=== PATIENT | female | born 1975 | race Caucasian/White ===

== ENCOUNTER 2016-06-16 16:20 | Emergency (ER) | payer OTHER ==
--- NOTE | 2016-06-16 17:28 | DIAGNOSTIC IMAGING REPORT ---
PROCEDURE: CT HEAD WITHOUT CONTRAST INDICATION: HEADACHE TECHNIQUE: Axial CT images were acquired through the head. Coronal and sagittal reformations were created. COMPARISON: None. FINDINGS: No intracranial hemorrhage or extraaxial fluid collections. Ventricles are normal in size, shape and position. There is no mass, mass effect or midline shift. The zimmerman-white matter differentiation is normal. There is no edema. The calvarium is intact. The paranasal sinuses and mastoid air cells are normally aerated. The extracranial soft tissues and orbits are normal. IMPRESSION: 1. No CT evidence of acute intracranial process. 2. Findings discussed with COURTNEY Cobb covering for Nicole Randle at [address] scans at this facility use dose modulation, iterative reconstruction, and/or weight-based dosing when appropriate to reduce radiation dose to as low as reasonably achievable.
--- NOTE | 2016-06-16 18:41 | ED CLINICAL REPORT ---
Clinical Report - Physicians/Mid Levels [facility] [address] [place] [address] 06/16/2016 16:21 Patient: SHAYE PRITCHETT Time Seen: 16:43 Jun 16 2016. Arrived- By private vehicle. Historian- patient. HISTORY OF PRESENT ILLNESS Is still present. Chief Complaint: HEADACHE. This started today. Located in the frontal region and region of the left eye. No neck pain. The patient has had nausea and vomiting. (Dull constant headache on the front retro-orbital aspect of the her head since this morning, with associated nausea and vomiting, no abdominal pain. Patient reports history of allergic type of headaches that are different. Reports in the last few months and recently has been having throbbing similar headaches to today, however they only last a few seconds and self resolved. Patient was seen at the clinic and sent to the emergency department. Denies any recent illness, fevers. Reports chills. Reports an abnormal blood pressure on a measurement today, and the skin to the clinic. Denies any new medications. Denies any head trauma. Denies any foreign travel.). REVIEW OF SYSTEMS No fever, ear pain, chest pain, difficulty breathing or abdominal pain. No diarrhea or pain with urination. All systems otherwise negative, except as recorded above. SOCIAL HISTORY Smoker- current status unknown. No alcohol use. ADDITIONAL NOTES The nursing notes have been reviewed. PHYSICAL EXAM Vital Signs: 06/16/2016 17:09 BP: 139/88. HR: 65. RR: 18. O2 saturation: 95%. Temp: 98 F. Pain level now: 7/10. Appearance: Alert. Eyes: Pupils equal, round and reactive to light. ENT: Ears normal. Neck: Normal inspection. CVS: Normal heart rate and rhythm. Heart sounds normal. Back: Normal inspection. Neuro: Cranial nerves normal (as tested). No cerebellar findings. No motor deficit. No sensory deficit. LABS, X-RAYS, AND EKG CT Head: (IMPRESSION: 1. No CT evidence of acute intracranial process. 2. Findings discussed with COURTNEY Cobb covering for Nicole Randle at [address] scans at this facility use dose modulation, iterative reconstruction, and/or weight-based dosing when appropriate to reduce radiation dose to as low as reasonably achievable. Electronically Final signed by:Martine Quiñonez MD 06/16/2016 5:28:34 PM). Laboratory Tests: UA-Culture if indicated: (STACEY: 06/16/2016 16:35) ( [facility] [place] 06/16/2016 16:57) Final results Test Result Flag Units (Reference) URINE COLOR YELLOW URINE APPEARANCE CLEAR URINE GLUCOSE NEGATIVE (NEGATIVE) URINE BILIRUBIN NEGATIVE (NEGATIVE) URINE KETONE NEGATIVE (NEGATIVE) URINE SPECIFIC GRAVITY <= 1.005 L (1.010-1.030) URINE PH 7.0 (5.0-8.0) URINE PROTEIN NEGATIVE (NEGATIVE) URINE UROBILINOGEN 0.2 EU/dL (0.2-1.0) URINE NITRITE NEGATIVE (NEGATIVE) URINE BLOOD TRACE-INTACT (NEGATIVE) URINE LEUK ESTERASE TRACE (NEGATIVE) URINE RBC 0-1 rbc/hpf (0-1) URINE WBC 1-3 wbc/hpf (0-1) URINE EPITHELIAL CELLS 0-1 EPI/hpf (0-5) URINE BACTERIA TRACE (<1+) (NONE SEEN) 1+ MUCOUS URINE COMMENT CULTURE INDICATED URINE CULTURES ARE SET-UP BASED ON THE FOLLOWING CRITERIA:POSITIVE NITRITEPOSITIVE LEUKOCYTE ESTERASEGREATER THAN 10 WHITE BLOOD CELLSMODERATE (2+) OR GREATER BACTERIA CBC w Diff: (STACEY: 06/16/2016 17:30) ( [facility] 06/16/2016 17:37) Final results Test Result Flag Units (Reference) WHITE BLOOD COUNT 8.6 K/uL (4.5-11.5) RED BLOOD COUNT 4.34 M/uL (4.00-5.20) HEMOGLOBIN 13.0 gm/dL (12.0-16.0) HEMATOCRIT 37.8 % (36.0-46.0) MEAN CELL VOLUME 87 fL (80-100) MEAN CORPUSCULAR HGB 30 pg (26-34) MEAN CORPUSCULAR HGB CONC 34 g/dL (31-37) RED CELL DISTRIBUTION WIDTH 12.6 % (11.6-14.8) PLATELET COUNT 242 K/uL (150-400) NEUTROPHIL % 74.2 % (50-75) LYMPH % 20.1 L % (25-40) MONO % 4.9 % (3-14) EOSINOPHIL % 0.4 % (0-4) BASOPHIL % 0.4 % (0-2) PT with INR: (STACEY: 06/16/2016 17:10) ( [facility] 06/16/2016 18:28) Final results Test Result Flag Units (Reference) INR 0.9 (0.8-1.2) Low Intensity Therapy: INR 1.5-2.0 PT range 18.5-23.1Mod.Intensity Therapy: INR 2.0-3.0 PT range 23.1-31.5High Intensity Therapy: INR 2.5-3.5 PT range 27.4-35.5High Intensity Therapy 2: INR 3.0-4.0 PT range 31.5-39.3 APTT 31 SECONDS (24-34) CMP: (STACEY: 06/16/2016 17:30) ( [facility] 06/16/2016 17:57) Final results Test Result Flag Units (Reference) GLUCOSE 124 H mg/dL (70-110) BUN 9 mg/dL (7-18) CREATININE 0.7 mg/dL (0.6-1.3) Estimated GFR >60 mL/min Estimated GFR- >60 mL/min Note: Persistent reduction over 3 months in eGFR<60 mL/min/1.73 m2 defines CKD. Patients with eGFR values>=60 mL/min/1.73 m2 may also have CKD if evidence ofpersistent proteinuria. Additional information may be foundat www.kidney.org. SODIUM 137 mmol/L (136-145) POTASSIUM 3.5 mmol/L (3.5-5.1) CHLORIDE 100 mmol/L (98-107) CARBON DIOXIDE 25 mmol/L (21-32) CALCIUM 9.1 mg/dL (8.5-10.1) TOTAL PROTEIN 8.2 g/dL (6.4-8.2) ALBUMIN 4.1 g/dL (3.3-5.0) BILIRUBIN, TOTAL 0.5 mg/dL (0.0-1.0) ALKALINE PHOSPHATASE 101 U/L (46-116) AST (SGOT) 30 U/L (15-37) ALT (SGPT) 53 U/L (12-78) . PROGRESS AND PROCEDURES Course of Care: here in the ER patient received IV hydration, IV Toradol, Zofran and Reglan. CT of the head is unremarkable. Her lab workup is unremarkable. Given her worsening headache that started this morning and peaked around 1 or 2 PM discussion was made in regard to a lumbar puncture. Discussed at length with patient in regard to risk and benefits of lumbar puncture, and although a small suspicion for John an hemorrhage, cannot completely rule search out. In addition Dr. Santacruz was in the room discussing the same with the patient. Ultimately she opted to not have the procedure completed due to the potential risk factors Found this to be appropriate, as potential for SAH, given her symptoms have been ongoing for about almost 10 hours, peak greater than 1 hour with an onset, history of somewhat similar symptoms in the past off and on, however the symptoms lasted for longer duration and hours today. No otherwise injury. Patient does not have any meningeal signs, thus this is not suspected. 06/16/2016 18:52 BP: 100/67. HR: 70. RR: 16. O2 saturation: 98%. Temp: 97.7 F. Pain level now: 4/10. Patient is stable. Physical exam findings are improved. Symptoms better. Patient/family counseled. Disposition: Discharged. CLINICAL IMPRESSION Acute headache. INSTRUCTIONS (Please return if your symptoms suddenly worse or change). Warnings: Further evaluation is necessary. Prescription Medications: Zofran (orally disintegrating tablets) 4 mg: take 1 orally every 6 hours for 3 days as needed for nausea. Dispense ten (10). No refill. OTC Medications: Take OTC medications according to label instructions. Available over the counter. Acetaminophen (available over the counter): take according to label instructions. Motrin (available over the counter): take according to label instructions. Understanding of the discharge instructions verbalized by patient and family. (Electronically signed by Zofia Randle P.A.-C 06/16/2016 20:28)
--- NOTE | 2016-06-16 18:41 | ED ORDER SUMMARY ---
..... Patient: SHAYE PRITCHETT OrderSheet [facility] VisitID: [id number] [place] [address] 40y, F Registration Date/Time: 06/16/2016 ORDER SHEET Weight: 68.0 kg (stated) Allergies: Vicodin, Tramadol, morphine, GENERAL ORDERS: CT Head wo Cont Urgent (16:39 06/16/2016 EKoroleva P.A.-C) (Ack 16:41 IJurca ER Tech1) (17:17 MCampbell) CBC w Diff Urgent (16:40 06/16/2016 EKoroleva P.A.-C) (Ack 16:41 IJurca ER Tech1) (17:49 MCook R.N.) CMP Urgent (16:40 06/16/2016 EKoroleva P.A.-C) (Ack 16:41 IJurca ER Tech1) (17:49 MCook R.N.) UA-Culture if indicated Urgent (16:40 06/16/2016 EKoroleva P.A.-C) (Ack 16:41 IJurca ER Tech1) (16:59 MCook R.N.) CSF, Cell Count Urgent (17:50 06/16/2016 EKoroleva P.A.-C) (Ack 17:51 IJurca ER Tech1) (19:11 MCook R.N.) (Cancelled: Pt refused tzwczerob11:12 MCook R.N.) CSF, Culture Urgent (17:50 06/16/2016 EKoroleva P.A.-C) (Ack 17:51 IJurca ER Tech1) (19:11 MCook R.N.) (Cancelled: Pt refused pgmajsrnp56:12 MCook R.N.) CSF, Glucose Urgent (17:50 06/16/2016 EKoroleva P.A.-C) (Ack 17:51 IJurca ER Tech1) (19:11 MCook R.N.) (Cancelled: Pt refused opxvaxkvw75:12 MCook R.N.) CSF, Protein Urgent (17:50 06/16/2016 EKoroleva P.A.-C) (Ack 17:51 IJurca ER Tech1) (19:11 MCook R.N.) (Cancelled: Pt refused [id number] MCook R.N.) LP Tray (17:50 06/16/2016 EKoroleva P.A.-C) (Ack 17:51 IJurca ER Tech1) (18:10 MCook R.N.) PT with INR Urgent (18:06 06/16/2016 Kwame Freitas) (Ack 18:08 IJurca ER Tech1) (18:31 MCook R.N.) PTT Urgent (18:06 06/16/2016 Kwame Freitas) (Ack 18:08 IJurca ER Tech1) (18:31 MCook R.N.) MEDICATION ORDERS: IV FLUIDS: IV NS : initial bolus 1000 mL (1000 mL/hr), then 1000 mL/hr for X1 (NOW); Marlo (16:39 06/16/2016 EKoroleva P.A.-C) (17:00 MCook R.N.) Reglan IV 10 mg (NOW) (16:40 06/16/2016 EKoroleva P.A.-C) (17:02 MCook R.N.) Zofran IV 4 mg (NOW) (16:40 06/16/2016 EKoroleva P.A.-C) (17:05 MCook R.N.) Toradol IV 30 mg (NOW) (16:40 06/16/2016 EKoroleva P.A.-C) (17:07 MCook R.N.) Ativan IV 1 mg (HIGH ALERT MEDICATION, NOW) (17:50 06/16/2016 EKoroleva P.A.-C) (18:31 MCook R.N.) ORDER SHEET NOTES: [Electronically signed by Juarez Negrete R.N. (19:12 06/16/2016)] [Electronically signed by Zofia Randle P.A.-C (20:28 06/16/2016)] [Electronically locked/signed by Juarez Negrete R.N. (19:12 06/16/2016)]
--- NOTE | 2016-06-16 18:41 | ED NURSING NOTES ---
Clinical Report - Nurses [facility] [address] [place] [address] 06/16/2016 16:21 Patient: SHAYE PRITCHETT TRIAGE Triage time 1700. Acuity: LEVEL 3. Chief Complaint: NAUSEA and VOMITING and (BANG). Alert. No acute distress. SEPSIS SCREEN: Sepsis Screen. Negative (no infection suspected/documented). --17:14 Juarez Negrete R.N. 17:09 06/16/16. BP: 139/88. HR: 65. RR: 18. O2 saturation: 95% on room air. Temp: 98 F. Pain level now: 08/22. --17:14 Juarez Negrete R.N. Weight: 68 kg stated. Height/Length: 62 inches Per Patient. BMI: 27.4. --17:08 Juarez Negrete R.N. Medications Baby ASA. --17:10 Juarez Negrete R.N. Multivit. --17:10 Juarez Negrete R.N. Green tea capsule. --17:11 Juarez Negrete R.N. The following entry was struck by Juarez Negrete R.N., 17:45 (06/16/16) Reason - other. <<STRICKEN ENTRY-- Multivita. --17:11 Juarez Negrete R.N. --END STRIKE>>. Allergies Vicodin. --17:10 Juarez Negrete R.N. Tramadol. --17:10 Juarez Negrete R.N. morphine. --17:10 Juarez Negrete R.N. The following entry was struck by Juarez Negrete R.N., 17:45 (06/16/16) Reason - other. <<STRICKEN ENTRY-- Tramadol. --17:10 Juarez Negrete R.N. --END STRIKE>>. History Arrived by private vehicle. Historian: patient and family. Accompanied by family. This started today. She has had nausea and vomiting. No diarrhea, constipation, abdominal pain or fever. Treatment CLINICAL FACULTY: None. PAST MEDICAL HX: Immunizations: up-to-date. Denies current . SOCIAL HX: Current every day smoker. No alcohol use or drug use. No recent travel. No infectious disease exposure. No known contact with a sick individual. ABUSE ASSESSMENT: No report of abuse. FALL RISK ASSESSMENT: Fall risk assessment completed. No fall risk identified. NUTRITIONAL RISK ASSESSMENT: The nutritional risk assessment revealed no deficiencies. FUNCTIONAL ASSESSMENT: Functional assessment: no impairments noted. LEARNING NEEDS ASSESSMENT: The learning needs assessment revealed no barriers. SKIN INTEGRITY ASSESSMENT: Skin integrity risk assessment completed. No skin integrity risk identified. --17:14 Juarez Negrete R.N. PROBLEMS: Headache. Endometriosis. --17:12 Juarez Negrete R.N. ADDITIONAL SURGERIES: Total hysterectomy with removal of both tubes and ovaries. --17:12 Juarez Negrete R.N. Assessment The patient states feels the same. --17:14 Juarez Negrete R.N. Interventions ID band on patient. --17:14 Juarez Negrete R.N. PHYSICAL ASSESSMENT To room via wheelchair. GENERAL / NEURO / PSYCH: Alert. Oriented X 4. Appears in distress. HEENT: Mucous membranes are pink. RESPIRATORY: Respirations not labored. CVS: Capillary refill less than 2 seconds. SKIN: Skin is warm and dry. --17:14 Juarez Negrete R.N. NURSING PROGRESS NOTES 17:00 06/16/2016 Site #1 started via IV in the right wrist with an 22g angiocath, with aseptic technique; two attempts. Saline lock flushed with saline. --17:00 Juarez Negrete R.N. 17:00 06/16/2016 Started bag #1 1000 mL IV Fluids IV NS (Saline); bolus of 1000 mL wide open via site #1. Allergies verified and confirmed 5 rights. IV patency established. IV site checked: no pain, redness, or swelling. IV flushed thoroughly pre- and post-medication administration. Completed per protocol. --17:00 Juarez Negrete R.N. 17:02 06/16/2016 Reglan (Metoclopramide HCl) IVP 10 mg given. via site #1. Allergies verified and confirmed 5 rights. IV patency established. IV site checked: no pain, redness, or swelling. IV flushed thoroughly pre- and post-medication administration. IVP given by RN. --17:02 Juarez Negrete R.N. 17:05 06/16/2016 Zofran (Ondansetron HCl) IVP 4 mg given. via site #1. Allergies verified and confirmed 5 rights. IV patency established. IV site checked: no pain, redness, or swelling. IV flushed thoroughly pre- and post-medication administration. IVP given by RN. --17:05 Juarez Negrete R.N. 17:07 06/16/2016 Toradol IVP 30 mg given. via site #1. Allergies verified and confirmed 5 rights. IV patency established. IV site checked: no pain, redness, or swelling. IV flushed thoroughly pre- and post-medication administration. IVP given by RN. --17:07 Juarez Negrete R.N. The plan of care for this patient has been created. Monitoring of patient in place. Reassurance given. Patient transported to CT by stretcher with [employer]. Two patient identifiers checked. Call light placed in reach. Bed placed in lowest position. Patient ready for evaluation- PA notified. ( Pt stable, scheduled medications given, VSS, lab here to collect blood.). --17:15 Juarez Negrete R.N. Patient returned from CT by stretcher with [employer]. (17:28 Jun 16 2016). --17:28 Juarez Negrete R.N. ( Dr. Quiñonez called, reported a negative head CT.). --17:38 Juarez Negrete R.N. 18:31 06/16/2016 Ativan IV 1 mg (HIGH ALERT MEDICATION, NOW) was refused by patient because of Pt refused LP and therefore refuses medication. Juarez Negrete --18:31 Juarez Negrete R.N. ( PA in to discuss recommendation for LP. Reviewed risks and benefits of procedure. MD then in to further discuss procedure. Pt then refused procedure after talking with MD, states she would prefer to "just wait" to see if her BANG improves. Spouse at bedside. VSS.). --18:39 Juarez Negrete R.N. 18:39 06/16/16. BP: 106/68. HR: 73. RR: 16. O2 saturation: 100% on room air. Pain level now: 05/23. --18:39 Juarez Negrete R.N. 18:54 06/16/2016 Site #1 removed upon discharge. Bandage applied. --18:54 Juarez Negrete R.N. 18:54 06/16/2016 IV Fluids IV NS Discontinued: bag #1 discontinued upon arrival. Total amount infused: 500 mL. IV patency established. IV site checked: no pain, redness, or swelling. IV flushed thoroughly. --18:54 Juarez Negrete R.N. 18:54 06/16/2016 Reglan IVP Response: no adverse reaction. --18:54 Juarez Negrete R.N. 18:54 06/16/2016 Zofran IVP Response: no adverse reaction. --18:54 Juarez Negrete R.N. 18:54 06/16/2016 Toradol IVP Response: no adverse reaction. --18:54 Juarez Negrete R.N. DISPOSITION / DISCHARGE 18:52 06/16/16. BP: 100/67. HR: 70. RR: 16. O2 saturation: 98% on room air. Temp: 97.7 F. Pain level now: 05/23. --18:53 Juarez Negrete R.N. Condition at departure: improved and stable. No learning barriers present. Discharge instructions provided and reviewed with the patient and spouse. Reviewed medication(s) side effects, precautions, dosing and course information. Prescription(s) given to the patient. Reviewed referral to a primary care physician for followup. Patient and spouse verbalized understanding. Written instructions provided in Argentine. The patient was discharged by the physician telecom assistant. She was discharged home and accompanied by spouse. She left the Emergency Department ambulatory and via private vehicle. Spouse driving. ( Pt dc'd in stable condition, ambulatory, VSS, BANG improved.). --18:53 Juarez Negrete R.N. Departure time: 18:53 Jun 16 2016. --18:53 Juarez Negrete R.N. Locked/Released at 06/16/2016 19:12 by Juarez Negrete R.N.
--- NOTE | 2016-06-16 18:41 | ED NURSING NOTES ---
Clinical Report - Nurses [facility] [address] [place] [address] 06/16/2016 16:21 Patient: SHAYE PRITCHETT TRIAGE Triage time 1700. Acuity: LEVEL 3. Chief Complaint: NAUSEA and VOMITING and (BANG). Alert. No acute distress. SEPSIS SCREEN: Sepsis Screen. Negative (no infection suspected/documented). --17:14 Juarez Nergete R.N. 17:09 06/16/16. BP: 139/88. HR: 65. RR: 18. O2 saturation: 95% on room air. Temp: 98 F. Pain level now: 08/22. --17:14 Juarez Negrete R.N. Weight: 68 kg stated. Height/Length: 62 inches Per Patient. BMI: 27.4. --17:08 Juarez Negrete R.N. Medications Baby ASA. --17:10 Juarez Negrete R.N. Multivit. --17:10 Juarez Negrete R.N. Green tea capsule. --17:11 Juarez Negrete R.N. The following entry was struck by Juarez Negrete R.N., 17:45 (06/16/16) Reason - other. <<STRICKEN ENTRY-- Multivita. --17:11 Juarez Negrete R.N. --END STRIKE>>. Allergies Vicodin. --17:10 Juarez Negrete R.N. Tramadol. --17:10 Juarez Negrete R.N. morphine. --17:10 Juarez Negrete R.N. The following entry was struck by Juarez Negrete R.N., 17:45 (06/16/16) Reason - other. <<STRICKEN ENTRY-- Tramadol. --17:10 Juarez Negrete R.N. --END STRIKE>>. History Arrived by private vehicle. Historian: patient and family. Accompanied by family. This started today. She has had nausea and vomiting. No diarrhea, constipation, abdominal pain or fever. Treatment COMPUTER GAME TESTER: None. PAST MEDICAL HX: Immunizations: up-to-date. Denies current . SOCIAL HX: Current every day smoker. No alcohol use or drug use. No recent travel. No infectious disease exposure. No known contact with a sick individual. ABUSE ASSESSMENT: No report of abuse. FALL RISK ASSESSMENT: Fall risk assessment completed. No fall risk identified. NUTRITIONAL RISK ASSESSMENT: The nutritional risk assessment revealed no deficiencies. FUNCTIONAL ASSESSMENT: Functional assessment: no impairments noted. LEARNING NEEDS ASSESSMENT: The learning needs assessment revealed no barriers. SKIN INTEGRITY ASSESSMENT: Skin integrity risk assessment completed. No skin integrity risk identified. --17:14 Juarez Negrete R.N. PROBLEMS: Headache. Endometriosis. --17:12 Juarez Negrete R.N. ADDITIONAL SURGERIES: Total hysterectomy with removal of both tubes and ovaries. --17:12 Juarez Negrete R.N. Assessment The patient states feels the same. --17:14 Juarez Negrete R.N. Interventions ID band on patient. --17:14 Juarez Negrete R.N. PHYSICAL ASSESSMENT To room via wheelchair. GENERAL / NEURO / PSYCH: Alert. Oriented X 4. Appears in distress. HEENT: Mucous membranes are pink. RESPIRATORY: Respirations not labored. CVS: Capillary refill less than 2 seconds. SKIN: Skin is warm and dry. --17:14 Juarez Negrete R.N. NURSING PROGRESS NOTES 17:00 06/16/2016 Site #1 started via IV in the right wrist with an 22g angiocath, with aseptic technique; two attempts. Saline lock flushed with saline. --17:00 Juarez Negrete R.N. 17:00 06/16/2016 Started bag #1 1000 mL IV Fluids IV NS (Saline); bolus of 1000 mL wide open via site #1. Allergies verified and confirmed 5 rights. IV patency established. IV site checked: no pain, redness, or swelling. IV flushed thoroughly pre- and post-medication administration. Completed per protocol. --17:00 Juarez Negrete R.N. 17:02 06/16/2016 Reglan (Metoclopramide HCl) IVP 10 mg given. via site #1. Allergies verified and confirmed 5 rights. IV patency established. IV site checked: no pain, redness, or swelling. IV flushed thoroughly pre- and post-medication administration. IVP given by RN. --17:02 Juarez Negrete R.N. 17:05 06/16/2016 Zofran (Ondansetron HCl) IVP 4 mg given. via site #1. Allergies verified and confirmed 5 rights. IV patency established. IV site checked: no pain, redness, or swelling. IV flushed thoroughly pre- and post-medication administration. IVP given by RN. --17:05 Juarez Negrete R.N. 17:07 06/16/2016 Toradol IVP 30 mg given. via site #1. Allergies verified and confirmed 5 rights. IV patency established. IV site checked: no pain, redness, or swelling. IV flushed thoroughly pre- and post-medication administration. IVP given by RN. --17:07 Juarez Negrete R.N. The plan of care for this patient has been created. Monitoring of patient in place. Reassurance given. Patient transported to CT by stretcher with Mark media. Two patient identifiers checked. Call light placed in reach. Bed placed in lowest position. Patient ready for evaluation- PA notified. ( Pt stable, scheduled medications given, VSS, lab here to collect blood.). --17:15 Juarez Negrete R.N. Patient returned from CT by stretcher with Mark media. (17:28 Jun 16 2016). --17:28 Juarez Negrete R.N. ( Dr. Quiñonez called, reported a negative head CT.). --17:38 Juarez Negrete R.N. 18:31 06/16/2016 Ativan IV 1 mg (HIGH ALERT MEDICATION, NOW) was refused by patient because of Pt refused LP and therefore refuses medication. Juarez Negrete --18:31 Juarez Negrete R.N. ( PA in to discuss recommendation for LP. Reviewed risks and benefits of procedure. MD then in to further discuss procedure. Pt then refused procedure after talking with MD, states she would prefer to "just wait" to see if her BANG improves. Spouse at bedside. VSS.). --18:39 Juarez Negrete R.N. 18:39 06/16/16. BP: 106/68. HR: 73. RR: 16. O2 saturation: 100% on room air. Pain level now: 05/23. --18:39 Juarez Negrete R.N. 18:54 06/16/2016 Site #1 removed upon discharge. Bandage applied. --18:54 Juarez Negrete R.N. 18:54 06/16/2016 IV Fluids IV NS Discontinued: bag #1 discontinued upon arrival. Total amount infused: 500 mL. IV patency established. IV site checked: no pain, redness, or swelling. IV flushed thoroughly. --18:54 Juarez Negrete R.N. 18:54 06/16/2016 Reglan IVP Response: no adverse reaction. --18:54 Juarez Negrete R.N. 18:54 06/16/2016 Zofran IVP Response: no adverse reaction. --18:54 Juarez Negrete R.N. 18:54 06/16/2016 Toradol IVP Response: no adverse reaction. --18:54 Juarez Negrete R.N. DISPOSITION / DISCHARGE 18:52 06/16/16. BP: 100/67. HR: 70. RR: 16. O2 saturation: 98% on room air. Temp: 97.7 F. Pain level now: 05/23. --18:53 Juarez Negrete R.N. Condition at departure: improved and stable. No learning barriers present. Discharge instructions provided and reviewed with the patient and spouse. Reviewed medication(s) side effects, precautions, dosing and course information. Prescription(s) given to the patient. Reviewed referral to a primary care physician for followup. Patient and spouse verbalized understanding. Written instructions provided in Qatari. The patient was discharged by the physician broker assistant. She was discharged home and accompanied by spouse. She left the Emergency Department ambulatory and via private vehicle. Spouse driving. ( Pt dc'd in stable condition, ambulatory, VSS, BANG improved.). --18:53 Juarez Negrete R.N. Departure time: 18:53 Jun 16 2016. --18:53 Juarez Negrete R.N. Locked/Released at 06/16/2016 19:12 by Juarez Negrete R.N.
--- NOTE | 2016-06-16 18:41 | ED ORDER SUMMARY ---
..... Patient: SHAYE PRITCHETT OrderSheet [facility] VisitID: [id number] [place] [address] 40y, F Registration Date/Time: 06/16/2016 ORDER SHEET Weight: 68.0 kg (stated) Allergies: Vicodin, Tramadol, morphine, GENERAL ORDERS: CT Head wo Cont Urgent (16:39 06/16/2016 EKoroleva P.A.-C) (Ack 16:41 IJurca ER Tech1) (17:17 MCampbell) CBC w Diff Urgent (16:40 06/16/2016 EKoroleva P.A.-C) (Ack 16:41 IJurca ER Tech1) (17:49 MCook R.N.) CMP Urgent (16:40 06/16/2016 EKoroleva P.A.-C) (Ack 16:41 IJurca ER Tech1) (17:49 MCook R.N.) UA-Culture if indicated Urgent (16:40 06/16/2016 EKoroleva P.A.-C) (Ack 16:41 IJurca ER Tech1) (16:59 MCook R.N.) CSF, Cell Count Urgent (17:50 06/16/2016 EKoroleva P.A.-C) (Ack 17:51 IJurca ER Tech1) (19:11 MCook R.N.) (Cancelled: Pt refused [id number] MCook R.N.) CSF, Culture Urgent (17:50 06/16/2016 EKoroleva P.A.-C) (Ack 17:51 IJurca ER Tech1) (19:11 MCook R.N.) (Cancelled: Pt refused [id number] MCook R.N.) CSF, Glucose Urgent (17:50 06/16/2016 EKoroleva P.A.-C) (Ack 17:51 IJurca ER Tech1) (19:11 MCook R.N.) (Cancelled: Pt refused [id number] MCook R.N.) CSF, Protein Urgent (17:50 06/16/2016 EKoroleva P.A.-C) (Ack 17:51 IJurca ER Tech1) (19:11 MCook R.N.) (Cancelled: Pt refused tlqnbiwdv12:12 MCook R.N.) LP Tray (17:50 06/16/2016 EKoroleva P.A.-C) (Ack 17:51 IJurca ER Tech1) (18:10 MCook R.N.) PT with INR Urgent (18:06 06/16/2016 Kwame Freitas) (Ack 18:08 IJurca ER Tech1) (18:31 MCook R.N.) PTT Urgent (18:06 06/16/2016 Kwame Freitas) (Ack 18:08 IJurca ER Tech1) (18:31 MCook R.N.) MEDICATION ORDERS: IV FLUIDS: IV NS : initial bolus 1000 mL (1000 mL/hr), then 1000 mL/hr for X1 (NOW); Marlo (16:39 06/16/2016 EKoroleva P.A.-C) (17:00 MCook R.N.) Reglan IV 10 mg (NOW) (16:40 06/16/2016 EKoroleva P.A.-C) (17:02 MCook R.N.) Zofran IV 4 mg (NOW) (16:40 06/16/2016 EKoroleva P.A.-C) (17:05 MCook R.N.) Toradol IV 30 mg (NOW) (16:40 06/16/2016 EKoroleva P.A.-C) (17:07 MCook R.N.) Ativan IV 1 mg (HIGH ALERT MEDICATION, NOW) (17:50 06/16/2016 EKoroleva P.A.-C) (18:31 MCook R.N.) ORDER SHEET NOTES: [Electronically signed by Juarez Negrete R.N. (19:12 06/16/2016)] [Electronically signed by Zofia Randle P.A.-C (20:28 06/16/2016)] [Electronically locked/signed by Juarez Negrete R.N. (19:12 06/16/2016)]
--- NOTE | 2016-06-16 20:28 | ED MAR SUMMARY ---
..... Medication Administration Record [facility] [address] [place] [address] Patient: SHAYE PRITCHETT Visit ID: [id number] 40y, F Weight: 68.0 kg Height/Length: 62 in BMI: 27.4 ALLERGIES: morphine, Tramadol, Vicodin Start 17:00 06/16/2016 Juarez Negrete R.N., Stop 18:54 06/16/2016 Juarez Negrete R.N. Medication Administered: IV NS (SALINE), Dose: IV Fluids, Bolus: 1000 mL wide open, Dispensed: 1000 mL bag, Site: #1 right wrist. Medication Ordered: IV NS : initial bolus 1000 mL (1000 mL/hr), then 1000 mL/hr for X1 (NOW); Marlo. Given 17:02 06/16/2016 Juarez Negrete R.N. Medication Administered: REGLAN [IVP] (METOCLOPRAMIDE HCL), Dose: 10 mg IVP, Site: #1 right wrist. Medication Ordered: Reglan IV 10 mg (NOW). Given 17:05 06/16/2016 Juarez Negrete R.N. Medication Administered: ZOFRAN [IVP] (ONDANSETRON HCL), Dose: 4 mg IVP, Site: #1 right wrist. Medication Ordered: Zofran IV 4 mg (NOW). Given 17:07 06/16/2016 Juarez Negrete R.N. Medication Administered: TORADOL [IVP], Dose: 30 mg IVP, Site: #1 right wrist. Medication Ordered: Toradol IV 30 mg (NOW).
--- NOTE | 2016-06-16 20:28 | ED DISCHARGE INSTRUCTIONS ---
Patient: SHAYE PRITCHETT General Instructions [facility] VisitID: [id number] [place] [address] 40y, F Registration Date/Time: 06/16/2016 Acute headache. INSTRUCTIONS (Please return if your symptoms suddenly worse or change). Warnings: Further evaluation is necessary. Prescription Medications: Zofran (orally disintegrating tablets) 4 mg: take 1 orally every 6 hours for 3 days as needed for nausea. Dispense ten (10). No refill. OTC Medications: Take OTC medications according to label instructions. Available over the counter. Acetaminophen (available over the counter): take according to label instructions. Motrin (available over the counter): take according to label instructions. Understanding of the discharge instructions verbalized by patient and family. ADDITIONAL INFORMATION Headache [Unspecified] The cause of your headache today is not clear, but it does not appear to be the sign of any serious illness. Under stress, some people tense the muscles of their shoulder, neck and scalp without knowing it. If this condition lasts long enough, a TENSION HEADACHE can occur. A MIGRAINE HEADACHE is caused by changes in blood flow to the brain. A migraine attack may be triggered by emotional stress, hormone changes during the menstrual cycle, oral contraceptives, alcohol use, certain foods containing tyramine, eye strain, weather changes, missing meals, lack of sleep or oversleeping. Other causes of headache include a viral illness with high fever, head injury with concussion, sinus, ear or throat infection, dental pain and TMJ (jaw joint) pain. More serious but less common causes of headache include stroke, brain hemorrhage, brain tumor, meningitis and encephalitis. Home Care: If you were given pain medicine for this headache, do not drive yourself home. Arrange for a ride, instead. When you get home, try to sleep. You should feel much better when you wake up. Apply heat to the back of your neck to relieve neck muscle spasm. Migraine headaches may respond best to an ice pack on the forehead or at the base of the skull. If you are having nausea or vomiting, follow a light diet until your headache is relieved. If you have a migraine type headache, use sunglasses when in the daylight or around bright indoor lighting until symptoms improve. Bright glaring light can worsen this kind of headache. Follow Up with your doctor if the headache is not better within the next 24 hours. If you have frequent headaches you should discuss a treatment plan with your primary care doctor. By being aware of the earliest signs of headache, and starting treatment right away, you may be able to stop the pain yourself. Get Prompt Medical Attention if any of the following occur: Worsening of your head pain or no improvement within 24 hours Repeated vomiting (unable to keep liquids down) Fever of 100.4F (38C) or higher, or as directed by your healthcare provider Stiff neck Extreme drowsiness, confusion or fainting Dizziness, vertigo (dizziness with spinning sensation) Weakness of an arm or leg or one side of the face Difficulty with speech or vision Ondansetron Hydrochloride Oral tablet What is this medicine? ONDANSETRON (on ROSIE se princess) is used to treat nausea and vomiting caused by chemotherapy. It is also used to prevent or treat nausea and vomiting after surgery. How should I use this medicine? Take this medicine by mouth with a glass of water. Follow the directions on your prescription label. Take your doses at regular intervals. Do not take your medicine more often than directed. Talk to your senior hr business partner regarding the use of this medicine in children. Special care may be needed. What side effects may I notice from receiving this medicine? Side effects that you should report to your doctor or health childcare center administrator as soon as possible: allergic reactions like skin rash, itching or hives, swelling of the face, lips or tongue breathing problems dizziness fast or irregular heartbeat feeling faint or lightheaded, falls fever and chills swelling of the hands or feet tightness in the chest Side effects that usually do not require medical attention (report to your doctor or health childcare center administrator if they continue or are bothersome): constipation or diarrhea headache What may interact with this medicine? Do not take this medicine with any of the following medications: -apomorphine -cisapride -dofetilide -dronedarone -pimozide -thioridazine -ziprasidone This medicine may also interact with the following medications: -carbamazepine -phenytoin -rifampicin -tramadol -other medicines that prolong the QT interval (cause an abnormal heart rhythm) What if I miss a dose? If you miss a dose, take it as soon as you can. If it is almost time for your next dose, take only that dose. Do not take double or extra doses. Where should I keep my medicine? Keep out of the reach of children. Store between 2 and 30 degrees C (36 and 86 degrees F). Throw away any unused medicine after the expiration date. What should I tell my health care provider before I take this medicine? They need to know if you have any of these conditions: heart disease history of irregular heartbeat liver disease low levels of magnesium or potassium in the blood an unusual or allergic reaction to ondansetron, granisetron, other medicines, foods, dyes, or preservatives or trying to get breast-feeding What should I watch for while using this medicine? Check with your doctor or health childcare center administrator right away if you have any sign of an allergic reaction. You have been given the following additional information: Headache, Unspecified Ondansetron Hydrochloride Oral tablet (Electronically signed by Zofia Randle P.A.-C 06/16/2016 20:28)
--- NOTE | 2016-06-16 20:28 | ED DISCHARGE INSTRUCTIONS ---
Patient: SHAYE PRITCHETT General Instructions [facility] VisitID: [id number] [place] [address] 40y, F Registration Date/Time: 06/16/2016 Acute headache. INSTRUCTIONS (Please return if your symptoms suddenly worse or change). Warnings: Further evaluation is necessary. Prescription Medications: Zofran (orally disintegrating tablets) 4 mg: take 1 orally every 6 hours for 3 days as needed for nausea. Dispense ten (10). No refill. OTC Medications: Take OTC medications according to label instructions. Available over the counter. Acetaminophen (available over the counter): take according to label instructions. Motrin (available over the counter): take according to label instructions. Understanding of the discharge instructions verbalized by patient and family. ADDITIONAL INFORMATION Headache [Unspecified] The cause of your headache today is not clear, but it does not appear to be the sign of any serious illness. Under stress, some people tense the muscles of their shoulder, neck and scalp without knowing it. If this condition lasts long enough, a TENSION HEADACHE can occur. A MIGRAINE HEADACHE is caused by changes in blood flow to the brain. A migraine attack may be triggered by emotional stress, hormone changes during the menstrual cycle, oral contraceptives, alcohol use, certain foods containing tyramine, eye strain, weather changes, missing meals, lack of sleep or oversleeping. Other causes of headache include a viral illness with high fever, head injury with concussion, sinus, ear or throat infection, dental pain and TMJ (jaw joint) pain. More serious but less common causes of headache include stroke, brain hemorrhage, brain tumor, meningitis and encephalitis. Home Care: If you were given pain medicine for this headache, do not drive yourself home. Arrange for a ride, instead. When you get home, try to sleep. You should feel much better when you wake up. Apply heat to the back of your neck to relieve neck muscle spasm. Migraine headaches may respond best to an ice pack on the forehead or at the base of the skull. If you are having nausea or vomiting, follow a light diet until your headache is relieved. If you have a migraine type headache, use sunglasses when in the daylight or around bright indoor lighting until symptoms improve. Bright glaring light can worsen this kind of headache. Follow Up with your doctor if the headache is not better within the next 24 hours. If you have frequent headaches you should discuss a treatment plan with your primary care doctor. By being aware of the earliest signs of headache, and starting treatment right away, you may be able to stop the pain yourself. Get Prompt Medical Attention if any of the following occur: Worsening of your head pain or no improvement within 24 hours Repeated vomiting (unable to keep liquids down) Fever of 100.4F (38C) or higher, or as directed by your healthcare provider Stiff neck Extreme drowsiness, confusion or fainting Dizziness, vertigo (dizziness with spinning sensation) Weakness of an arm or leg or one side of the face Difficulty with speech or vision Ondansetron Hydrochloride Oral tablet What is this medicine? ONDANSETRON (on ROSIE se princess) is used to treat nausea and vomiting caused by chemotherapy. It is also used to prevent or treat nausea and vomiting after surgery. How should I use this medicine? Take this medicine by mouth with a glass of water. Follow the directions on your prescription label. Take your doses at regular intervals. Do not take your medicine more often than directed. Talk to your machine assembler for puller over regarding the use of this medicine in children. Special care may be needed. What side effects may I notice from receiving this medicine? Side effects that you should report to your doctor or health health care marketing specialist as soon as possible: allergic reactions like skin rash, itching or hives, swelling of the face, lips or tongue breathing problems dizziness fast or irregular heartbeat feeling faint or lightheaded, falls fever and chills swelling of the hands or feet tightness in the chest Side effects that usually do not require medical attention (report to your doctor or health health care marketing specialist if they continue or are bothersome): constipation or diarrhea headache What may interact with this medicine? Do not take this medicine with any of the following medications: -apomorphine -cisapride -dofetilide -dronedarone -pimozide -thioridazine -ziprasidone This medicine may also interact with the following medications: -carbamazepine -phenytoin -rifampicin -tramadol -other medicines that prolong the QT interval (cause an abnormal heart rhythm) What if I miss a dose? If you miss a dose, take it as soon as you can. If it is almost time for your next dose, take only that dose. Do not take double or extra doses. Where should I keep my medicine? Keep out of the reach of children. Store between 2 and 30 degrees C (36 and 86 degrees F). Throw away any unused medicine after the expiration date. What should I tell my health care provider before I take this medicine? They need to know if you have any of these conditions: heart disease history of irregular heartbeat liver disease low levels of magnesium or potassium in the blood an unusual or allergic reaction to ondansetron, granisetron, other medicines, foods, dyes, or preservatives or trying to get breast-feeding What should I watch for while using this medicine? Check with your doctor or health health care marketing specialist right away if you have any sign of an allergic reaction. You have been given the following additional information: Headache, Unspecified Ondansetron Hydrochloride Oral tablet (Electronically signed by Zofia Randle P.A.-C 06/16/2016 20:28)
--- NOTE | 2016-06-16 20:28 | ED MAR SUMMARY ---
..... Medication Administration Record [facility] [address] [place] [address] Patient: SHAYE PRITCHETT Visit ID: [id number] 40y, F Weight: 68.0 kg Height/Length: 62 in BMI: 27.4 ALLERGIES: morphine, Tramadol, Vicodin Start 17:00 06/16/2016 Juarez Negrete R.N., Stop 18:54 06/16/2016 Juarez Negrete R.N. Medication Administered: IV NS (SALINE), Dose: IV Fluids, Bolus: 1000 mL wide open, Dispensed: 1000 mL bag, Site: #1 right wrist. Medication Ordered: IV NS : initial bolus 1000 mL (1000 mL/hr), then 1000 mL/hr for X1 (NOW); Marlo. Given 17:02 06/16/2016 Juarez Negrete R.N. Medication Administered: REGLAN [IVP] (METOCLOPRAMIDE HCL), Dose: 10 mg IVP, Site: #1 right wrist. Medication Ordered: Reglan IV 10 mg (NOW). Given 17:05 06/16/2016 Juarez Negrete R.N. Medication Administered: ZOFRAN [IVP] (ONDANSETRON HCL), Dose: 4 mg IVP, Site: #1 right wrist. Medication Ordered: Zofran IV 4 mg (NOW). Given 17:07 06/16/2016 Juarez Negrete R.N. Medication Administered: TORADOL [IVP], Dose: 30 mg IVP, Site: #1 right wrist. Medication Ordered: Toradol IV 30 mg (NOW).
--- NOTE | 2016-06-16 20:29 | ED MED RECONCILIATION SUMMARY ---
Patient: SHAYE PRITCHETT Medication Reconciliation Report [facility] VisitID: [id number] [place] [address] 40y, F Registration Date/Time: 06/16/2016 Weight: 68.0 kg Height/Length: 62 in. BMI: 27.4 ALLERGIES: morphine, Tramadol, Vicodin The patient's Home Medications are listed below: THE FOLLOWING MEDICATIONS NEED TO BE RECONCILED: Baby ASA Green tea capsule Multivit The source(s) of the original Home Medication information: Not obtained. The following Medications were given to the patient in the Emergency Department: IV NS IV Fluids bolus 1000 mL wide open, administered: 06/16/2016 5:00:00 PM Reglan [IVP] IVP 10 mg, administered: 06/16/2016 5:02:00 PM Zofran [IVP] IVP 4 mg, administered: 06/16/2016 5:05:00 PM Toradol [IVP] IVP 30 mg, administered: 06/16/2016 5:07:00 PM The following Medications were prescribed to the patient: Take OTC medications according to label instructions. Available over the counter. -- Zofia Randle, P.A.-C Acetaminophen (available over the counter): take according to label instructions. -- Zofia Randle, P.A.-C Motrin (available over the counter): take according to label instructions. -- Zofia Randle, P.A.-C Zofran (orally disintegrating tablets) 4 mg: take 1 orally every 6 hours for 3 days as needed for nausea. Dispense ten (10). No refill. -- Zofia Randle, P.A.-C
--- NOTE | 2016-06-16 20:29 | ED MED RECONCILIATION SUMMARY ---
Patient: SHAYE PRITCHETT Medication Reconciliation Report [facility] VisitID: [id number] [place] [address] 40y, F Registration Date/Time: 06/16/2016 Weight: 68.0 kg Height/Length: 62 in. BMI: 27.4 ALLERGIES: morphine, Tramadol, Vicodin The patient's Home Medications are listed below: THE FOLLOWING MEDICATIONS NEED TO BE RECONCILED: Baby ASA Green tea capsule Multivit The source(s) of the original Home Medication information: Not obtained. The following Medications were given to the patient in the Emergency Department: IV NS IV Fluids bolus 1000 mL wide open, administered: 06/16/2016 5:00:00 PM Reglan [IVP] IVP 10 mg, administered: 06/16/2016 5:02:00 PM Zofran [IVP] IVP 4 mg, administered: 06/16/2016 5:05:00 PM Toradol [IVP] IVP 30 mg, administered: 06/16/2016 5:07:00 PM The following Medications were prescribed to the patient: Take OTC medications according to label instructions. Available over the counter. -- Zofia Randle, P.A.-C Acetaminophen (available over the counter): take according to label instructions. -- Zofia Randle, P.A.-C Motrin (available over the counter): take according to label instructions. -- Zfoia Randle, P.A.-C Zofran (orally disintegrating tablets) 4 mg: take 1 orally every 6 hours for 3 days as needed for nausea. Dispense ten (10). No refill. -- Zofia Randle, P.A.-C
== END 2016-06-16 18:55 | disposition home or self-care (01) ==
LOC: ED SRH 16:20
DX: R51 Headache (principal); R11.2 Nausea with vomiting, unspecified
CPT/HCPCS: 90004; 90100; 90469; 94001; 94060; 95059